=== PATIENT | female | born 1970 | race Caucasian/White ===

== ENCOUNTER 2022-06-14 13:06 | Emergency (ER) | payer OTHER, MEDICAID ==
[~2022-06-14] VITALS: Ht 162.6 cm; Wt 74.8 kg
[2022-06-14 13:06] VITALS: BP_SYST 99
--- NOTE | 2022-06-14 13:06 | NUR ---
BROUGHT INTO TRIAGE TENT AND TRIAGED, BROUGHT INTO ROOM #6 AFTER TRIAGE. REPORT GIVEN TO DENIA
--- NOTE | 2022-06-14 13:42 | NUR ---
Urine cup given so pt can provide urine sample but pt states she cannot urinate at this time but will try later.
--- NOTE | 2022-06-14 13:42 | NUR ---
Covid and flu swab complete and sent to lab.
[2022-06-14 14:06] LABS: BASOPHILS # (AUTO) 0.1 K/uL (0.0-0.2); BASOPHILS % (AUTO) 1.1 % (0.0-2.0); EOSINOPHILS # (AUTO) 0.2 K/uL (0.0-0.4); HEMATOCRIT 36.2 % (36-48); HEMOGLOBIN 12.3 g/dL (12.0-16.0); LYMPHOCYTES # (AUTO) 2.6 K/uL (1.0-5.5); LYMPHOCYTES % (AUTO) 24.8 % (20.5-51.5); MEAN CORPUSCULAR HEMOGLOBIN 29 pg (27-31); MEAN CORPUSCULAR HGB CONC 34 % (32-36); MEAN CORPUSCULAR VOLUME 86 fL (79.0-98.0); MONOCYTES # (AUTO) 1.3 K/uL (0.0-1.0); MONOCYTES % (AUTO) 12.5 % (1.7-9.3); NEUTROPHILS # (AUTO) 6.2 K/uL (1.8-7.7); NEUTROPHILS % (AUTO) 59.6 % (40.0-70.0); PLATELET COUNT (AUTO) 346 K/uL (130-430); RED BLOOD CELL COUNT(AUTO) 4.22 MIL/uL (4.2-6.2); WHITE BLOOD COUNT (AUTO) 10.4 K/uL (4.8-10.8)
--- NOTE | 2022-06-14 14:18 | NUR ---
DR BARROW IIN ROOM FOR EXAM
[2022-06-14 14:28] LABS: CALCIUM 8.9 mg/dL (8.4-11.0); CREATININE 1.06 mg/dL (0.55-1.30); POTASSIUM 4.4 mmol/L (3.5-5.1)
[2022-06-14 14:34] LABS: ALBUMIN 3.4 g/dL (3.4-4.8); TOTAL BILIRUBIN 0.4 mg/dL (0.0-1.0)
--- NOTE | 2022-06-14 14:56 | NUR ---
URINE CUP AND SPECIMEN FOR STOOL CUP GIVEN.
[2022-06-14] MEDS ORDERED: LOM2.5 PO (15:16)
[2022-06-14] MEDS ORDERED: IBUP-1969 PO (15:16)
--- NOTE | 2022-06-14 15:27 | NUR ---
Patient given written and verbal discharge instructions and verbalizes understanding. ER MD discussed with patient the results and treatment provided. Patient in stable condition. ID arm band removed. Rx of LOMOTIL, IBUPROFEN given. Patient educated on pain management and to follow up with PMD. Pain Scale . Opportunity for questions provided and answered. Medication side effect fact sheet provided.
[2022-06-14 15:28] VITALS: BP_SYST 103
[2022-06-14 16:40] LABS: BILIRUBIN,URINE NEGATIVE (NEGATIVE); BLOOD, URINE NEGATIVE (NEGATIVE); CLARITY/URINE CLEAR (CLEAR); COLOR,URINE YELLOW (YELLOW); GLUCOSE,URINE NEGATIVE (NEGATIVE); KETONES,URINE NEGATIVE (NEGATIVE); LEUKOCYTE ESTERASE ,URINE NEGATIVE (NEGATIVE); NITRITE, URINE NEGATIVE (NEGATIVE); PH,URINE 6.5 (5.0-8.0); PROTEIN URINE NEGATIVE (NEGATIVE); UROBILINOGEN,URINE 0.2 (0.2-1.0)
== END 2022-06-14 15:27 | disposition home or self-care (01) ==
LOC: SED 13:06
DX: R19.7 Diarrhea, unspecified (principal); R10.84 Generalized abdominal pain; Z20.822 Contact with and (suspected) exposure to COVID-19
CPT/HCPCS: 36415; 76376; 80053; 81003; 81025; 83690; 85025; 99284

== ENCOUNTER 2022-12-18 19:46 | Emergency (ER) | payer OTHER, MEDICAID ==
[~2022-12-18] VITALS: Ht 162.6 cm; Wt 72.6 kg
[~2022-12-18 19:46] MED LIST: IBUP-1969 PO; LOM2.5 PO
[2022-12-18 19:52] VITALS: BP_SYST 140
== END 2022-12-18 20:25 | disposition left against medical advice (07) ==
LOC: SED 19:46
DX: R51.9 Headache, unspecified (principal); R05.9 Cough, unspecified; R50.9 Fever, unspecified; Z53.21 Procedure and treatment not carried out due to patient leaving prior to being seen by health care provider